=== PATIENT | male | born 1980 | race African-American/Black ===

== ENCOUNTER 2019-02-22 07:01 | Emergency (ER) | payer BC ==
[~2019-02-22] VITALS: Ht 177.8 cm; Wt 154.2 kg
[2019-02-22 07:05] VITALS: BP 179/117
[2019-02-22] MEDS ORDERED: ONDANSETRON ODT 4 MG TAB.RAPDIS ONE (08:04)
[2019-02-22] MEDS ORDERED: AMOX500T PO (08:06)
[2019-02-22] MEDS ORDERED: MELO7.5T29 PO (08:06)
[2019-02-22] MEDS ORDERED: HYDR-3165 PO (08:06)
--- NOTE | 2019-02-22 08:06 | PHYS DOC ---
Past History Past Medical History: Diabetes Smoking: Chew (stopped chewing 1 to 2 months ago) Alcohol Use: None Drug Use: Marijuana Adult General Chief Complaint Chief Complaint: DENTAL PROBLEM HPI HPI Patient is a 38-year-old male presents complaining of left upper dental pain. Patient has had also: His tooth for a while, has been treating it with things like Orajel and [id number] pain medicines. It became much worse today. No difficulty breathing or swallowing. No fever. No relief with medicine today. Pain is severe in intensity.[] Review of Systems Review of Systems Constitutional: Denies fever or chills [] Eyes: Denies change in visual acuity, redness, or eye pain [] HENT: Denies nasal congestion or sore throat, see history of present illness [] Respiratory: Denies cough or shortness of breath [] Cardiovascular: No additional information not addressed in HPI [] GI: Denies abdominal pain, nausea, vomiting, bloody stools or diarrhea [] : Denies dysuria or hematuria [] Musculoskeletal: Denies back pain or joint pain [] Integument: Denies rash or skin lesions [] Neurologic: Denies headache, focal weakness or sensory changes [] Endocrine: Denies polyuria or polydipsia [] All other systems were reviewed and found to be within normal limits, except as documented in this note. Allergies Allergies Allergies Coded Allergies Type Severity Reaction Last Updated Verified morphine Allergy Unknown 02/22/19 Yes Physical Exam Physical Exam Constitutional: Well developed, well nourished, moderate distress, non-toxic appearance. [] HENT: Normocephalic, atraumatic, bilateral external ears normal, oropharynx moist, no oral exudates, nose normal. Left upper tooth, tooth #13 and 14 have tenderness to percussion. No drainable abscess appreciated. Widespread dental disease is present. [] Eyes: PERRLA, EOMI, conjunctiva normal, no discharge. [] Neck: Normal range of motion, no tenderness, supple, no stridor. No cervical lymphadenopathy [] Cardiovascular:Heart rate regular rhythm, no murmur [] Lungs & Thorax: Bilateral breath sounds clear to auscultation [] Abdomen: Bowel sounds normal, soft, no tenderness, no masses, no pulsatile masses. [] Skin: Warm, dry, no erythema, no rash. [] Back: No tenderness, no CVA tenderness. [] Extremities: No tenderness, no cyanosis, no clubbing, ROM intact, no edema. [] Neurologic: Alert and oriented X 3, normal motor function, normal sensory function, no focal deficits noted. [] Psychologic: Affect normal, judgement normal, mood normal. [] Current Patient Data Vital Signs Vital Signs Date Time Temp Pulse Resp B/P (MAP) Pulse Ox O2 Delivery O2 Flow Rate FiO2 02/22/19 07:01 97.6 109 24 100 EKG EKG [] Radiology/Procedures Radiology/Procedures [] Course & Med Decision Making Course & Med Decision Making Pertinent Labs and Imaging studies reviewed. (See chart for details) ED course: Patient arrived, was placed in bed, and tolerated exam well. He was given medicine for pain as well as an initial dose of antibiotics. Findings and plan were discussed with the patient who voiced understanding. All questions were answered. He was discharged in improved condition. His is driving Medical decision making: Patient with what appears to be a periapical abscess. No evidence of Jabari angina. No evidence of systemic toxicity. No evidence of meningitis or encephalitis.[] Dragon Disclaimer Dragon Disclaimer This electronic medical record was generated, in whole or in part, using a voice recognition dictation system. Departure Departure: Impression: Primary Impression: Pain, dental Disposition: 01 HOME, SELF-CARE Condition: IMPROVED Referrals: BLANCHE SURESH (PCP) Patient Instructions: Dental Abscess, Dental Caries Additional Instructions: Swish and spit with warm salt water at least 4 times a day. 1 teaspoon of salt in 8 ounces of water. Follow-up with your regular dentist within 2 days. If you do not have a regular dentist a list of local dental clinics will be provided. Return to the ER if worsening pain, fever of more than 101, or any other concerns. Scripts Hydrocodone Bit/Acetaminophen (NORCO 5-325 TABLET) 1 Each Tablet 1 TAB PO Q4-6HRS for severe pain, #20 TAB Prov: GUS HANSEN DO 02/22/19 Meloxicam (MELOXICAM) 7.5 Mg Tablet 7.5 MG PO DAILY for PAIN, #20 TAB Prov: GUS HANSEN DO 02/22/19 Amoxicillin (AMOXICILLIN) 500 Mg Tablet 500 MG PO TID for dental infection for 10 Days, #30 TAB Prov: GUS HANSEN DO 02/22/19 GUS HANSEN DO Feb 22, 2019 08:06
[2019-02-22] MEDS ORDERED: IBUPROFEN 600 MG TABLET. PO ONE (08:15)
[2019-02-22] MEDS ORDERED: AMOXICILLIN 250 MG CAPSULE PO ONE (08:15)
[2019-02-22] MEDS ORDERED: HYDROcodone/APAP 5/325MG 1 TAB TABLET PO ONE (08:15)
[2019-02-22] MEDS ORDERED: ONDANSETRON ODT 4 MG TAB.RAPDIS PO ONE (08:15)
== END 2019-02-22 08:11 | disposition home or self-care (01) ==
LOC: ER 07:01
DX: K08.89 Other specified disorders of teeth and supporting structures (principal); E11.9 Type 2 diabetes mellitus without complications; F17.220 Nicotine dependence, chewing tobacco, uncomplicated
CPT/HCPCS: 99284; Q0162